=== PATIENT | male | born 1960 | race Caucasian/White ===

== ENCOUNTER → 2017-02-05 | Outpatient (CLI) | payer SELFPAY ==
--- NOTE | 2017-02-05 13:25 | RAD ---
Right knee, 3 views, 02/05/2017: History: Knee swelling, injury No fracture or dislocation is identified. There is minimal marginal spurring at the knee joint and the patellofemoral articulation. No joint effusion is evident. Prepatellar soft tissue swelling is noted. IMPRESSION: No acute bony abnormality is detected.
== END | disposition home or self-care (01) ==
LOC: DXRADRC 09:08
PROVIDERS: ATTEND General Practice
DX: M25.461 Effusion, right knee (principal)
CPT/HCPCS: 73562

== ENCOUNTER → 2017-12-31 | Outpatient (CLI) | payer OTHER ==
--- NOTE | 2017-12-31 16:48 | RAD ---
History: Smashed thumb with hammer previous day. Comparison: None. Findings: PA view of the left hand. Oblique and lateral views of the 1st digit (thumb). Comminuted, nondisplaced fracture seen involving the mid and distal aspects of the 1st distal phalanx. As this is subungual in location, this is probably open fracture. 1st MCP degeneration is seen. There are opaque foreign body is seen. Impression: Open, comminuted fracture of the 1st distal phalanx. Electronically signed by: Juice Fairbanks MD (12/31/2017 4:45 PM) [place] [id number]
== END | disposition home or self-care (01) ==
LOC: RAD 16:25
PROVIDERS: ATTEND Physician Assistant
DX: S62.522A Displaced fracture of distal phalanx of left thumb, initial encounter for closed fracture (principal); X58.XXXA Exposure to other specified factors, initial encounter; Y93.89 Activity, other specified; Y92.89 Other specified places as the place of occurrence of the external cause; Y99.8 Other external cause status
CPT/HCPCS: 73140

== ENCOUNTER → 2018-01-21 | Outpatient (CLI) | payer OTHER ==
--- NOTE | 2018-01-21 15:32 | RAD ---
INDICATION: Hit thumb with hammer 3 weeks ago. Persistent pain. TECHNIQUE: 3 views of the left first digit including an AP view of the hand are submitted for review. No comparison is available. FINDINGS: Comminuted fracture of the distal aspect of the distal phalanx of the first digit is noted. This appears acute and traumatic. It does not extend intra-articular. There is no significant displacement of fragments. Additional fracture is not identified. There is soft tissue swelling. IMPRESSION: Acute traumatic fracture of the distal phalanx of the first digit. Electronically signed by: Esteban Alvarez MD (01/21/2018 3:29 PM) [facility]
== END | disposition home or self-care (01) ==
LOC: PMG 15:10
PROVIDERS: ATTEND Physician Assistant
DX: S62.631A Displaced fracture of distal phalanx of left index finger, initial encounter for closed fracture (principal); X58.XXXA Exposure to other specified factors, initial encounter; Y93.89 Activity, other specified; Y92.89 Other specified places as the place of occurrence of the external cause; Y99.8 Other external cause status
CPT/HCPCS: 73140

== ENCOUNTER → 2018-02-26 | Outpatient (CLI) | payer OTHER ==
--- NOTE | 2018-02-26 16:42 | RAD ---
EXAM: PA left hand, PA and and lateral views left thumb DATE: 02/26/2018 12:00 AM INDICATION: F/U FOR LEFT THUMB FRACTURE COMPARISON: No Prior FINDINGS: Comminuted fracture of the distal phalanx of the left thumb is seen, essentially nondisplaced. Moderate associated soft tissue swelling is seen. No definite articular extension. Thumb MCP and CMC joint degenerative changes are seen with small associated osteophytes. Chondrocalcinosis TFCC. IMPRESSION: 1. Comminuted fracture of the distal phalanx left thumb, essentially nondisplaced Electronically signed by: Arvind Schneider MD (02/26/2018 4:39 PM) [id number]
== END | disposition home or self-care (01) ==
LOC: RAD 16:21
PROVIDERS: ATTEND Physician Assistant
DX: S62.522D Displaced fracture of distal phalanx of left thumb, subsequent encounter for fracture with routine healing (principal); M11.242 Other chondrocalcinosis, left hand; M79.89 Other specified soft tissue disorders; X58.XXXD Exposure to other specified factors, subsequent encounter
CPT/HCPCS: 73140

== ENCOUNTER → 2020-05-22 | Outpatient (CLI) | payer BC ==
--- NOTE | 2020-05-22 10:25 | RAD ---
CT of the abdomen and pelvis without contrast. 05/22/2020 9:56 AM Indication: Reason: RIGHT SIDED PELVIC PAIN / Spl. Instructions: / History: Comparison Study: None. Technique: Multidetector CT imaging of the abdomen pelvis is obtained without administration of contrast. Findings: The visualized bilateral lung bases are clear. The liver, spleen, bilateral adrenal glands, gallbladder, and pancreas have a normal noncontrast enhanced appearance. The bilateral kidneys are grossly normal in appearance. There is no evidence of nephrolithiasis or obstructive uropathy. The ureters are normal in course and caliber. The bladder is grossly unremarkable. There is no significant free fluid or free air in the abdomen or pelvis. There is no evidence of bowel obstruction or significant inflamatory change involving the bowel. The appendix is well visualized and grossly normal. There is no acute osseous abnormality identified. Impression: 1. No evidence of acute intra-abdominal abnormality 2. No evidence of nephrolithiasis or acute obstructive uropathy. CT DOSING PQRS STATEMENT: One or more of the following individualized dose reduction techniques were utilized for this examination: 1. Automated exposure control 2. Adjustment of the mA and/or kV according to patient size 3. Use of iterative reconstruction technique Electronically signed by: Nilse Franklin MD (05/22/2020 10:22 AM) [id number]
== END ==
LOC: CT 09:41
PROVIDERS: ATTEND Family Medicine
DX: R10.84 Generalized abdominal pain (principal)
CPT/HCPCS: 74176

== ENCOUNTER 2020-07-03 15:59 | Emergency (ER) | payer BC ==
[~2020-07-03] VITALS: Ht 175.3 cm; Wt 86.0 kg
[2020-07-03] MEDS ORDERED: IV NORMAL SALINE 1,000ML 1,000 ML IV ONE (16:15)
[2020-07-03] MEDS ORDERED: IOHEXOL 300 MG/ML 75 ML VIAL. IV ONE (16:30)
[2020-07-03 16:48] LABS: BASO # 0.1 x10^3/uL (0.0-0.2); BASO % 1 % (0-3); EOS # 0.1 x10^3/uL (0.0-0.7); EOS % 1 % (0-3); HEMATOCRIT 46.8 % (39.0-53.0); HEMOGLOBIN 15.6 g/dL (13.0-17.5); LYMPH # 1.6 x10^3/uL (1.0-4.8); LYMPH % 16 % (24-48); MEAN CORPUSCULAR HEMOGLOBIN 30 pg (25-35); MEAN CORPUSCULAR HGB CONC 33 g/dL (31-37); MEAN CORPUSCULAR VOLUME 89 fL (79-100); MONO # 0.7 x10^3/uL (0.0-1.1); MONO % 7 % (0-9); NEUT # 7.6 x10^3uL (1.8-7.7); NEUT % 76 % (31-73); PLATELET COUNT 292 x10^3/uL (140-400); RED BLOOD COUNT 5.24 x10^6/uL (4.30-5.70); RED CELL DISTRIBUTION WIDTH 13.2 % (11.5-14.5); WHITE BLOOD COUNT 10.1 x10^3/uL (4.0-11.0)
[2020-07-03 16:56] LABS: ANION GAP 9 (6-14); BLOOD UREA NITROGEN 13 mg/dL (8-26); BUN/CREATININE RATIO 11 (6-20); CALCIUM 9.8 mg/dL (8.5-10.1); CARBON DIOXIDE 29 mmol/L (21-32); CHLORIDE 103 mmol/L (98-107); CREATININE 1.2 mg/dL (0.7-1.3); GFR 61.3; GLUCOSE 89 mg/dL (70-99); POTASSIUM 4.1 mmol/L (3.5-5.1); SODIUM 141 mmol/L (136-145)
--- NOTE | 2020-07-03 17:04 | PHYS DOC ---
Past History Past Medical History: Hypertension, Other Additional Past Medical Histor: gastric ulcers recently diagnosed. (06/2020) Past Surgical History: Other Additional Past Surgical Histo: Shoulder (right) surgery, low back surgery Alcohol Use: Rarely General Adult EDM: Chief Complaint: GROIN PAIN HPI: HPI: Patient is a 60year old male who presents with left sided groin pain. Pain first noticed intermittent groin pain a few months ago that would self resolve. Pain worsened within the past 5 weeks prompting him to present to his PCP Dr. Martin for further workup. EGD and colonoscopy done 1 week ago was unremarkable, revealing some gastric ulcers. Today, he noticed sustained left groin pain which he describes as sharp, burning pain around the inguinal region radiating toward the scrotum with associated bulging in the inguinal region. Pain is aggravated with prolonged standing. He saw down for a few hours but pain persisted with minimal improvement. He came in to his PCP's office where he was seen by a nurse practitioner in the practice and advised to come to the ED due to concern for incarcerated hernia. He rates his pain at 7-8/10. Last bowel movement was yesterday, which was "normal". No blood in stools, pt able to pass gas. Denies fevers, cough, shortness of breath, nausea, vomiting, or sick contacts. Review of Systems: Review of Systems: Constitutional: Denies fever or chills Respiratory: Denies cough or shortness of breath Cardiovascular: Denies chest pain or palpitations GI: Denies abdominal pain, nausea, or vomiting : +left groin pain and bulging. Denies dysuria or hematuria Musculoskeletal: Denies back pain or joint pain Integument: Denies rash or skin color changes. Complete systems were reviewed and found to be within normal limits, except as documented in this note. Family History: Family History: non-contributory Current Medications: Current Meds: Current Medications Medications (Trade) Dose Ordered Sig/Man Start Time Stop Time Status Last Admin Dose Admin Iohexol (Omnipaque 300 Mg/ml) 75 ml 1X ONCE 07/03/20 16:30 07/03/20 16:31 DC Sodium Chloride 1,000 ml @ 1,000 mls/hr 1X ONCE 07/03/20 16:15 07/03/20 17:14 Allergies: Allergies: Allergies Coded Allergies Type Severity Reaction Last Updated Verified No Known Drug Allergies 12/28/20 No Physical Exam: PE: Constitutional: Well developed, well nourished, no acute distress, non-toxic appearance HENT: Normocephalic, atraumatic Eyes: conjunctiva normal, no discharge Lungs & Thorax: No respiratory distress, equal chest rise and fall Abdomen: Soft, no tenderness : left sided inguinal fullness, no obvious bulging or skin color changes overlying area, no scrotal tenderness Skin: Warm, dry, no erythema, no rash Extremities: No tenderness, ROM intact, no edema Neurologic: Alert and oriented X 3, no focal deficits noted Current Patient Data: Vital Signs: Vital Signs Date Time Temp Pulse Resp B/P (MAP) Pulse Ox O2 Delivery O2 Flow Rate FiO2 07/03/20 16:11 98.9 96 18 194/128 (150) 99 EKG: EKG: @1704: HR 96, GA 168, QT/QTc 352/446, QRS 90, sinus rhythm, no ST elevations. Radiology/Procedures: Radiology/Procedures: PROCEDURE: CT ABD PELV W/ IV CONTRST ONLY Exam: CT abdomen and pelvis with contrast INDICATION: Left groin pain, evaluate for incarcerated hernia TECHNIQUE: Sequential axial images through the abdomen and pelvis obtained following the administration of 75 mL of Omni 300 IV contrast. Sagittal and coronal reformatted images were reconstructed from the axial data and reviewed. Comparisons: 05/22/2020 FINDINGS: Heart size is normal. No pericardial effusion. Strandy opacities at the dependent portion lungs likely representing atelectasis. No pleural effusion. Liver, spleen, pancreas, gallbladder and adrenals are unremarkable. No perinephric inflammation or hydronephrosis. No renal or ureteral calculi are identified. Bladder is distended and appears thin-walled. Prostate is not enlarged. There is a left inguinal hernia which contains a short segment of colon. Diverticulosis without evidence of acute diverticulitis. Appendix is normal. Small bowel is unremarkable. No obstruction. No free abdominal air or fluid. Abdominal aorta has a normal course and caliber. Abdominal vasculature is patent. No enlarged intra-abdominal lymph nodes are identified. No suspicious osseous lesions or acute fractures. IMPRESSION: Left inguinal hernia containing a short segment of descending colon. No evidence for obstruction. Exposure: One or more of the following in the visualized dose reduction techniques were utilized for this examination: 1. Automated exposure control 2. Adjustment of the MA and/or KV according to patient size 3. Use of iterative of reconstructive technique Electronically signed by: Maynor Rider MD (07/03/2020 4:59 PM) [facility] Course & Med Decision Making: Course & Med Decision Making Pertinent Labs and Imaging studies reviewed. (See chart for details) Pt is a 60 year old male with sustained left sided inguinal pain x 1 day. He was seen at his PCP's office by a nurse practitioner earlier today and sent to ED due to concern for incarcerated hernia. Physical exam revealed some left sided fullness but no obvious bulging or overlying skin changes. Pain controlled with fentanyl in ED. CT abdomen pelvis was significant for left sided inguinal hernia but no signs of obstruction or strangulation. Baseline CBC, CMP, lactic acid unremarkable. Baseline EKG obtained in case patient required hospital admission and surgical intervention. No emergent surgical intervention indicated at this time, referral to surgery for outpatient management given. Patient stable for discharge with outpatient follow-up with PCP. Discussed findings and plan with patient, who acknowledges understanding and agreement. Amy Disclaimer: Amy Disclaimer: This electronic medical record was generated, in whole or in part, using a voice recognition dictation system. Departure Departure: Impression: Primary Impression: Left inguinal hernia Disposition: 01 DC HOME SELF CARE/HOMELESS Condition: STABLE Referrals: FRANKY FARMER MD (PCP) ANA MARÍA RAPP MD Patient Instructions: Inguinal Hernia, Adult Scripts Hydrocodone Bit/Acetaminophen (NORCO 5-325 TABLET) 1 Each Tablet 0.5-1 TAB PO Q6HRS PRN for PAIN, #14 TAB Prov: JOSÉ NAVA DO 07/03/20 JOSÉ NAVA DO Jul 03, 2020 17:04
[2020-07-03 17:12] LABS: ALBUMIN 4.2 g/dL (3.4-5.0); ALBUMIN/GLOBULIN RATIO 1.2 (1.0-1.7); ALK PHOS 115 U/L (46-116); ALT (SGPT) 57 U/L (16-63); AST (SGOT) 38 U/L (15-37); LIPASE 103 U/L (73-393); MAGNESIUM 2.2 mg/dL (1.8-2.4); TOTAL BILIRUBIN 0.3 mg/dL (0.2-1.0); TOTAL PROTEIN 7.8 g/dL (6.4-8.2)
[2020-07-03] MEDS ORDERED: HYDR-3165 PO (17:26)
[2020-07-03 17:40] VITALS: BP 198/127
--- NOTE | 2020-07-03 22:47 | EKG ---
[facility] ED [facility] [place] [id number] Test Date: 2020-07-03 Test Time: 17:04:09 Pat Name: IVY DUNBAR Department: Room: Gender: M Game Programmer: : 1960 Requested By: JOSÉ NAVA Order Number: [id number] Reading MD: Measurements Intervals [place] Rate: 96 P: 25 MS: 168 QRS: 2 QRSD: 90 T: 24 QT: 352 QTc: 446 Interpretive Statements SINUS RHYTHM NORMAL ECG RI6.02 No previous ECG available for comparison
== END 2020-07-03 17:50 | disposition home or self-care (01) ==
LOC: ER 15:59
DX: K40.90 Unilateral inguinal hernia, without obstruction or gangrene, not specified as recurrent (principal); I10 Essential (primary) hypertension
CPT/HCPCS: 36415; 74177; 80053; 82553; 83605; 83690; 83735; 84484; 85025; 85610; 85730; 93005; 96361; 96374; 99285; J3010; J7030; Q9967

== ENCOUNTER 2020-07-12 18:21 | Emergency (ER) | payer BC ==
[~2020-07-12] VITALS: Ht 175.3 cm; Wt 86.0 kg
[~2020-07-12 18:21] MED LIST: HYDR-3165 PO
--- NOTE | 2020-07-12 18:40 | PHYS DOC ---
Past History Past Medical History: Hypertension, Other Additional Past Medical Histor: gastric ulcers recently diagnosed. (06/2020) (JENNIFER MARTIN APRN) Past Surgical History: Other Additional Past Surgical Histo: Shoulder (right) surgery, low back surgery (JENNIFER MARTIN APRN) Alcohol Use: Rarely (JENNIFER MARTIN APRN) General Adult EDM: Chief Complaint: CHEST PAIN HPI: HPI: Patient is a 60-year-old male who presents with chest pain. Patient states that the pain started 45 minutes ago while he was watching TV. Patient reports that his felt like his heart was racing and pain radiated in his back. Patient also reports he felt short of breath and lightheaded. Patient denies nausea, vomiting. Patient does report taking 250 mg of aspirin prior to arrival. Patient was just recently diagnosed with hypertension which he is not taking medication for. "I was watching the news and got really upset". (JENNIFER MARTIN APRN) Review of Systems: Review of Systems: Constitutional: Denies fever or chills Eyes: Denies change in visual acuity HENT: Denies nasal congestion or sore throat Respiratory: Denies cough or shortness of breath Cardiovascular: Reports right-sided chest pain that radiates into his back,denies edema GI: Denies abdominal pain, nausea, vomiting, bloody stools or diarrhea : Denies dysuria Musculoskeletal: Denies back pain or joint pain Integument: Denies rash Neurologic: Denies headache, focal weakness, reports dizziness Endocrine: Denies polyuria or polydipsia Lymphatic: Denies swollen glands Psychiatric: Denies depression or anxiety (JENNIFER MARTIN APRN) Allergies: Allergies: Allergies Coded Allergies Type Severity Reaction Last Updated Verified No Known Drug Allergies 07/03/20 No (JENNIFER MARTIN APRN) Physical Exam: PE: Constitutional: Well developed, well nourished, no acute distress, non-toxic appearance. [] HENT: Normocephalic, atraumatic, bilateral external ears normal, oropharynx moist, no oral exudates, nose normal. [] Eyes: PERRLA, EOMI, conjunctiva normal, no discharge. [] Neck: Normal range of motion, no tenderness, supple, no stridor. [] Cardiovascular:Heart rate regular rhythm, no murmur [] Lungs & Thorax: Bilateral breath sounds clear to auscultation [] Abdomen: Bowel sounds normal, soft, no tenderness, no masses, no pulsatile masses. [] Skin: Warm, dry, no erythema, no rash. [] Back: No tenderness, no CVA tenderness. [] Extremities: No tenderness, no cyanosis, no clubbing, ROM intact, no edema. [] Neurologic: Alert and oriented X 3, normal motor function, normal sensory function, no focal deficits noted. [] Psychologic: Affect normal, judgement normal, mood normal. [] (JENNIFER MARTIN APRN) Current Patient Data: Vital Signs: Vital Signs Date Time Temp Pulse Resp B/P (MAP) Pulse Ox O2 Delivery O2 Flow Rate FiO2 07/12/20 18:26 97.9 83 16 183/122 (142) 98 Room Air (JENNIFER MARTIN APRN) EKG: EKG: KG normal sinus rhythm, heart rate 85 bpm. Intervals normal, axis normal. Otherwise normal EKG. [] (JENNIFER MARTIN APRN) Radiology/Procedures: Radiology/Procedures: [] (JENNIFER MARTIN APRN) Heart Score: HEART Score for Chest Pain: HEART Score for Chest Pain Response (Comments) Value History Slighlty/Non-Suspicious 0 ECG Normal 0 Age >45 - < 65 1 Risk Factors 1 or 2 Risk Factors 1 Total 2 Risk Factors: Risk Factors: DM, Current or recent (<one month) smoker, HTN, HLP, family history of CAD, obesity. Risk Scores: Score 0 - 3: 2.5% MACE over next 6 weeks - Discharge Home Score 4 - 6: 20.3% MACE over next 6 weeks - Admit for Clinical Observation Score 7 - 10: 72.7% MACE over next 6 weeks - Early Invasive Strategies (JENNIFER MARTIN APRN) Course & Med Decision Making: Course & Med Decision Making Pertinent Labs and Imaging studies reviewed. (See chart for details) [] 4-year-old male presents with chest pain that started 45 minutes ago while he was watching TV. Patient states that he got upset while watching the news tonight felt that his heart was racing and the pain was radiating to his back. EKG was normal sinus rhythm. Troponin was negative. Heart score of 2. D-Dimer negative r/o need for CTA for PE. Patient's blood pressure was elevated upon arrival 180/110s. On reassessment patient's blood pressure a150/100. Patient reports that he was told he had high blood pressure last week and has not followed up with his primary care yet to be placed on hypertensive medications. Patient states chest pain has resolved and he feels like his anxiety has improved. patient agrees to follow-up with his primary care physician to be placed on blood pressure medication and further evaluation with a screen maker. And is hemodynamically stable and symptoms have resolved. (JENNIFER MARTIN APRN) Jackon Disclaimer: Dragneptali Disclaimer: This electronic medical record was generated, in whole or in part, using a voice recognition dictation system. (JENNIFER MARTIN APRN) Departure Departure: Impression: Primary Impression: Chest pain Qualified Codes: R07.9 - Chest pain, unspecified Disposition: 01 DC HOME SELF CARE/HOMELESS Condition: GOOD Referrals: FRANKY FARMER MD (PCP) Patient Instructions: Chest Pain (Nonspecific), [id number] Additional Instructions: You were seen in the ER tonight for concerns of chest pain. Your blood pressure was elevated upon arrival but has since decreased. Your labs and chest xray have all come back negative. Please follow up with your PCP to start medication for your blood pressure and get a referral for a screen maker for further evaluation. Please return to the ER with worsening symptoms or concerns. Thank you for choosing [facility] Emergency Room. EMERGENCY DEPARTMENT GENERAL DISCHARGE INSTRUCTIONS Thank you for coming to [facility] (ED) today and trusting us with you care. We trust that you had a positivie experience in our Emergency Department. If you wish to speak to the department management, you may call the director at . YOUR FOLLOW UP INSTRUCTIONS ARE FOLLOWS: 1. Do you have a private Doctor? If you do not have a private doctor, please ask for a resource list of physicians or clinics that may be able to assist you with follow up care. 2. The Emergency Physician has interpreted your x-rays. The X-Ray specialist will also review them. If there is a change in the findings, you will be notified in 48 hours when at all possible. 3. A lab test or culture has been done, your results will be reviewed and you will be notified if you need a change in treatment. ADDITIONAL INSTRUCTIONS AND INFORMATION: 1. Your care today has been supervised by a physician who is specially trained in emergency care. Many problems require more than one evaluation for a complete diagnosis and treatment. We recommend that you schedule your follow up appointment as recommended to ensure complete treatment of you illness or injury. If you are unable to obtain follow up care and continue to have a problem, or if your condition worsens, we recommend that you return to the ED. 2. We are not able to safely determine your condition over the phone nor are we able to give sound medical advice over the phone. For these safety reasons, if you call for medical advice we will ask you to come to the ED for further evaluation. 3. If you have any questions regarding these discharge instructions please call the ED at [phone]. SAFETY INFORMATION: In the interest of safety, wellness, and injury prevention; we encourage you to wear your sealbelt, if you smoke; quite smoking, and we encourage family to use a protective helmet for bicycling and other sporting events that present an increased risk for head injury. IF YOUR SYMPTOMS WORSEN OR NEW SYMPTOMS DEVELOP, OR YOU HAVE CONCERNS ABOUT YOUR CONDITION; OR IF YOUR CONDITION WORSENS WHILE YOU ARE WAITING FOR YOUR FOLLOW UP APPOINTMENT; EITHER CONTACT YOUR PRIMARY CARE DOCTOR, THE PHYSICIAN WHOSE NAME AND NUMBER YOU WERE GIVEN, OR RETURN TO THE ED IMMEDIATELY. Attending Signature Attending Signature I have participated in the care of this patient and I have reviewed and agree with all pertinent clinical information above including history, exam, and recommendations. (DAMIÁN CHOI MD) JENNIFER MARTIN APRN Jul 12, 2020 18:40 DAMIÁN CHOI MD Jul 15, 2020 16:14
[2020-07-12 19:00] LABS: BASO # 0.1 x10^3/uL (0.0-0.2); BASO % 1 % (0-3); EOS # 0.1 x10^3/uL (0.0-0.7); EOS % 1 % (0-3); HEMATOCRIT 46.8 % (39.0-53.0); HEMOGLOBIN 15.7 g/dL (13.0-17.5); LYMPH # 2.8 x10^3/uL (1.0-4.8); LYMPH % 29 % (24-48); MEAN CORPUSCULAR HEMOGLOBIN 30 pg (25-35); MEAN CORPUSCULAR HGB CONC 34 g/dL (31-37); MEAN CORPUSCULAR VOLUME 88 fL (79-100); MONO # 0.6 x10^3/uL (0.0-1.1); MONO % 6 % (0-9); NEUT # 6.1 x10^3uL (1.8-7.7); NEUT % 62 % (31-73); PLATELET COUNT 294 x10^3/uL (140-400); RED BLOOD COUNT 5.29 x10^6/uL (4.30-5.70); RED CELL DISTRIBUTION WIDTH 13.6 % (11.5-14.5); WHITE BLOOD COUNT 9.7 x10^3/uL (4.0-11.0)
[2020-07-12 19:03] LABS: CREATININE 1.2 mg/dL (0.7-1.3); GFR 61.3; POTASSIUM 4.2 mmol/L (3.5-5.1)
[2020-07-12 19:16] VITALS: BP 154/103
--- NOTE | 2020-07-12 19:17 | RAD ---
XR CHEST 1V Clinical History: Reason: chest pain / Spl. Instructions: / History: Technique: AP view of the chest was obtained at 07/12/2020 6:38 PM. Comparison: None. Findings: The cardiomediastinal silhouette is normal. The pulmonary vasculature is normal. The lungs and pleura l margins are clear. Impression: No evidence of an acute cardiopulmonary process. Electronically signed by: Abdullahi Hood III, MD (07/12/2020 7:15 PM) [facility]
[2020-07-12 19:18] LABS: ALBUMIN 4.3 g/dL (3.4-5.0); ALBUMIN/GLOBULIN RATIO 1.1 (1.0-1.7); TOTAL BILIRUBIN 0.3 mg/dL (0.2-1.0); TOTAL PROTEIN 8.2 g/dL (6.4-8.2)
--- NOTE | 2020-07-13 06:22 | EKG ---
[facility] [address] [place] [address] Test Date: 2020-07-12 Test Time: 18:29:19 Pat Name: IVY DUNBAR Department: Room: Gender: M Software Sales Executive: : 1960 Requested By: JENNIFER MARTIN Order Number: [id number] Reading MD: Mahin Aguirre Measurements Intervals [place] Rate: 63 P: 35 NM: 172 QRS: 19 QRSD: 90 T: 40 QT: 370 QTc: 381 Interpretive Statements SINUS RHYTHM NORMAL ECG RI6.02 Compared to ECG 07/03/2020 17:04:09 No significant changes Electronically Signed On 07-24-2020 9:46:08 GROCERY DEPARTMENT MANAGER by Mahin Aguirre
== END 2020-07-12 19:53 | disposition home or self-care (01) ==
LOC: ER 18:21
DX: R07.89 Other chest pain (principal); R06.02 Shortness of breath; R42 Dizziness and giddiness; I10 Essential (primary) hypertension
CPT/HCPCS: 36415; 71045; 80053; 82553; 83880; 84443; 84484; 85025; 85379; 85730; 93005; 99285